=== PATIENT | female | born 1965 | race Caucasian/White ===

== ENCOUNTER 2018-04-21 21:53 | Observation (INO) | payer OTHER ==
[~2018-04-21] VITALS: Ht 162.6 cm; Wt 99.8 kg
[2018-04-21 23:09] LABS: BASOPHILS ABSOLUTE AUTO 0.05 K/mm3 (0.00-0.23); BASOPHILS PERCENT AUTO 1 % (0-2); EOSINOPHILS ABSOLUTE AUTO 0.17 K/mm3 (0.00-0.68); EOSINOPHILS PERCENT AUTO 2 % (0-6); Hemoglobin 14.6 g/dL (11.5-16.0); IMMATURE GRAN ABSOLUTE AUTO 0.02 K/mm3 (0.00-0.10); IMMATURE GRAN PERCENT AUTO 0 % (0-1); LYMPHOCYTES ABSOLUTE AUTO 3.06 K/mm3 (0.84-5.20); LYMPHOCYTES PERCENT AUTO 36 % (21-46); MONOCYTES ABSOLUTE AUTO 0.56 K/mm3 (0.16-1.47); MONOCYTES PERCENT AUTO 7 % (4-13); Mean Corpuscular HGB 28.3 pg (26.0-34.0); Mean Corpuscular HGB Conc 33.2 g/dL (31.5-36.5); Mean Corpuscular Volume 85 fL (80-100); Mean Platelet Volume 9.2 fL (9.1-12.4); NEUTROPHILS ABSOLUTE AUTO 4.65 K/mm3 (1.96-9.15); NEUTROPHILS PERCENT AUTO 55 % (41-73); Platelet Count 210 K/mm3 (150-400); RDW Coefficient Variation 13.2 % (11.7-14.2); RDW Standard Deviation 41.5 fL (35.1-46.3); Red Blood Cell Count 5.16 M/mm3 (3.80-5.20); White Blood Cell Count 8.51 K/mm3 (4.00-11.30)
[2018-04-21 23:20] LABS: Alanine Aminotransfer (ALT/SGP 16 U/L (12-78); Albumin, Blood 3.6 g/dL (3.4-5.0); Albumin/Globulin Ratio 1.1 (0.8-1.8); Alk Phos 81 U/L (50-136); Anion Gap 9 mmol/L (6-16); Aspartate Aminotrans (AST/SGOT 10 U/L (12-37); Bilirubin, Total 0.2 mg/dL (0.1-1.0); Blood Urea Nitrogen 18 mg/dL (8-24); Bun/Creatinine Ratio 21.9 (12.0-20.0); CO2, Blood 25 mmol/L (21-32); Calcium, Blood 7.9 mg/dL (8.5-10.1); Chloride, Blood 109 mmol/L (98-108); Creatinine, Blood 0.82 mg/dL (0.40-1.00); Globulin, Blood 3.3 g/dL (2.2-4.0); Glomerular Filtration Rate >60 (60-); Glucose, Blood 96 mg/dL (70-99); Potassium, Blood 3.5 mmol/L (3.5-5.5); Sodium, Blood 143 mmol/L (136-145); Total Protein, Blood 6.9 g/dL (6.4-8.2); Troponin I <0.015 ng/mL (0.000-0.040)
[2018-04-22] MEDS ORDERED: ACET325 PO (01:57)
[2018-04-22] MEDS ORDERED: CHOL10002 PO (01:58)
--- NOTE | 2018-04-22 02:33 | NUR ---
0156 PT ARRIVED TO ROOM VIA GURNEY FROM ER IN STABLE CONDITION. REPORTS N/T IN L HAND AND ARM. L STAFF DEVELOPMENT EDUCATOR STRENGTH IS GOOD BUT L ARM IS SLIGHTLY WEAK. NO OTHER APPARENT SIGNS OF DISTRESS. CALL LIGHT IS IN REACH. 0200 TELE IS NSR WITH PAC'S AND OCCASIONAL PVC'S AT 69. MIGUEL RYTHYM FOR PATIENT, WILL INFORM DR WITH NEXT CALL.
[2018-04-22 04:56] LABS: Hematocrit 43.3 % (33.0-51.0); Hemoglobin 14.4 g/dL (11.5-16.0); Mean Corpuscular HGB 27.6 pg (26.0-34.0); Mean Corpuscular HGB Conc 33.3 g/dL (31.5-36.5); Mean Corpuscular Volume 83 fL (80-100); Mean Platelet Volume 9.4 fL (9.1-12.4); Platelet Count 202 K/mm3 (150-400); RDW Coefficient Variation 13.2 % (11.7-14.2); Red Blood Cell Count 5.21 M/mm3 (3.80-5.20); White Blood Cell Count 8.08 K/mm3 (4.00-11.30)
[2018-04-22 05:17] LABS: Alanine Aminotransfer (ALT/SGP 15 U/L (12-78); Albumin, Blood 3.5 g/dL (3.4-5.0); Albumin/Globulin Ratio 1.2 (0.8-1.8); Alk Phos 72 U/L (50-136); Anion Gap 8 mmol/L (6-16); Aspartate Aminotrans (AST/SGOT 7 U/L (12-37); Bilirubin, Total 0.5 mg/dL (0.1-1.0); Blood Urea Nitrogen 14 mg/dL (8-24); Bun/Creatinine Ratio 19.3 (12.0-20.0); CO2, Blood 26 mmol/L (21-32); Calcium, Blood 7.8 mg/dL (8.5-10.1); Chloride, Blood 108 mmol/L (98-108); Creatinine, Blood 0.73 mg/dL (0.40-1.00); Glomerular Filtration Rate >60 (60-); Glucose, Blood 97 mg/dL (70-99); Potassium, Blood 3.3 mmol/L (3.5-5.5); Sodium, Blood 142 mmol/L (136-145); Total Protein, Blood 6.5 g/dL (6.4-8.2)
--- NOTE | 2018-04-22 06:27 | NUR ---
0400 PT LYING IN BED, EYES CLOSED, APPEARS TO BE RESTING. WAKES EASILY TO VERBAL STIMULI. NO APPARENT SIGNS OF DISTRESS. CALL LIGHT IS IN REACH.
--- NOTE | 2018-04-22 06:28 | NUR ---
PT LYING IN BED, EYES CLOSED, APPEARS TO BE RESTING. BREATHING IS EVEN, UNLABORED. NO APPARENT SIGNS OF DISTRESS. CALL LIGHT IS IN REACH. NO OTHER CHANGES THIS SHIFT.
--- NOTE | 2018-04-22 06:29 | NUR ---
PT IS AAO X 4, ON RA. N/T AND WEAKNESS IN L ARM BUT L STUDENT SERVICES COUNSELOR IS GOOD. PT TO HAVE DOPPLER, MRI OF HEAD AND ECHO TODAY.
--- NOTE | 2018-04-22 17:54 | NUR ---
PATIENT IS A/OX4, UP INDEPENDENTLY IN ROOM. L ARM CONTINUES TO HAVE SOME N/T, WEAKNESS AND HEAVINESS. SR ON TELE, PATIENT DENIES ANY CP. LUNGS CLEAR, ON RA WITH CPAP AT [facility]. MRI OF HEAD DONE TODAY AND WAS NEGATIVE. ECHO SHOWED AND EF OF 71%. TYLENOL GIVEN X1 THIS SHIFT OFR AGUAYO. CALM AND COOPERATIVE WITH CARE. CALLS APPROPRIATELY FOR ASSISTANCE.
--- NOTE | 2018-04-23 06:58 | NUR ---
SHIFT SUMMARY: NO ACUTE CHANGES TO REPORT. PT STATES THAT L ARM HEAVINESS AND N/T HAS DECREASED THIS AM BUT IS STILL PRESENT. BP 135/80. NO OTHER ACUTE CHANGES TO REPORT. WILL CONT TO MONITOR AND PROVIDE CARE UNTIL PRESUMEED BY ONCOMING RN.
[2018-04-23] MEDS ORDERED: ATOR80 PO (11:26)
[2018-04-23] MEDS ORDERED: ASPI81CH PO (11:31)
[2018-04-23] MEDS ORDERED: POTCHL20ER PO (11:31)
[2018-04-23] MEDS ORDERED: HYDCHL25 PO (11:31)
--- NOTE | 2018-04-23 11:50 | NUR ---
PATIENT D/C'D TO HOME WITH FAMILY. RX MEDICATIONS FAXED TO [facility]. D/C INSTRUCTIONS AND EDUCATIONS DISCUSSED WITH PATIENT AND COPY PROVIDED. PATIENT DENIES ANY FURTHER QUESTIONS OR CONCERNS.
== END 2018-04-23 11:55 | disposition home or self-care (01) ==
LOC: ER 21:53 → MEDS 21:54 → ER 04-22 01:59 → MEDS 04-23 11:55
PROVIDERS: Emergency Medicine; ADMIT Internal Medicine
DX: R29.898 Other symptoms and signs involving the musculoskeletal system (principal); M79.602 Pain in left arm; G47.30 Sleep apnea, unspecified; I10 Essential (primary) hypertension; I65.23 Occlusion and stenosis of bilateral carotid arteries; E78.5 Hyperlipidemia, unspecified; E87.6 Hypokalemia; E66.01 Morbid (severe) obesity due to excess calories; G35 Multiple sclerosis; Z99.89 Dependence on other enabling machines and devices; Z68.37 Body mass index [BMI] 37.0-37.9, adult
CPT/HCPCS: 36415; 70450; 70551; 80053; 84484; 85025; 85027; 93005; 93010; 93306; 93880; 94660; 94762; 96372; 96374; 99285-25; G0378; J1650; J2060

== ENCOUNTER → 2021-07-22 | Outpatient (CLI) | payer SELFPAY ==
[~2021-07-22] MED LIST: ACET325 PO; ASPI81CH PO; ATOR80 PO; CHOL10002 PO; HYDCHL25 PO; POTCHL20ER PO
[2021-07-27 17:08] LABS: HPV 16 Negative (Negative); HPV 18 Negative (Negative); HPV OTHER HR TYPES Negative (Negative)
== END | disposition home or self-care (01) ==
LOC: LAB 15:57 → LAB SHORT 15:57
PROVIDERS: Obstetrics & Gynecology
DX: Z01.419 Encounter for gynecological examination (general) (routine) without abnormal findings (principal)
CPT/HCPCS: 87624; G0123